=== PATIENT | male | born 1975 | race Two or more races ===

== ENCOUNTER 2025-06-18 21:27 | Inpatient (IN) | payer MEDICAID ==
[~2025-06-18] VITALS: Ht 170.2 cm; Wt 79.0 kg
[2025-06-18 21:41] VITALS: O2SAT 99
[2025-06-18 23:01] LABS: BASOPHILS % 0.4 % (0.0-2.0); EOSINOPHILS % 4.0 % (0.0-5.0); HEMATOCRIT. 40.8 % (42.0-52.0); HEMOGLOBIN. 14.3 g/dL (14.0-18.0); LYMPHOCYTES % 32.2 % (20.0-50.0); MEAN PLATELET VOLUME 8.6 fl (7.4-10.4); MONOCYTES % 8.0 % (2.0-8.0); NEUTROPHILS % 55.4 % (40.0-76.0); PLATELET 220 x1000/uL (130-400); RED BLOOD CELL COUNT 4.25 mill/uL (4.7-6.1); RED CELL DISTRIBUTION WIDTH 12.4 % (11.6-14.6)
[2025-06-18 23:15] LABS: CREATININE 0.7 mg/dL (0.6-1.3); UREA NITROGEN BLOOD 9 mg/dL (9-23)
[2025-06-18] MEDS: ONDANSETRON HCL 4MG/2ML INJ IV ONE (23:34)
[2025-06-18] MEDS: MORPHINE SULFATE 4 MG/ML INJ (FOR IV/IM USE) IV ONE (23:35)
[2025-06-18] MEDS: SODIUM CHLORIDE 0.9% 1,000 ML IV ONE (23:35)
[2025-06-19 03:48] LABS: CLARITY URINE CLEAR (CLEAR); COLOR URINE YELLOW (YELLOW); GLUCOSE URINE NEGATIVE (NEGATIVE); KETONES URINE NEGATIVE (NEGATIVE); LEUKOCYTE ESTERASE URINE NEGATIVE (NEGATIVE); NITRITE URINE NEGATIVE (NEGATIVE); OCCULT BLOOD URINE NEGATIVE (NEGATIVE); PH URINE 7.0 (4.5-8.0); PROTEIN URINE NEGATIVE (NEGATIVE); SPECIFIC GRAVITY URINE 1.008 (1.005-1.030); UROBILINOGEN URINE 0.2 E.U./dL (0.2-1.0)
[2025-06-19 04:46] VITALS: BP 152/87; PULSE 57; RESP 18; TEMP 36.418
[2025-06-19] MEDS ORDERED: ACETAMINOPHEN 325MG TABLET PO PRN ×2 (06:00)
[2025-06-19] MEDS ORDERED: NALOXONE HCL 0.4MG/ML VIAL IV PRN (06:00)
[2025-06-19] MEDS: HYDROCODONE/ACETAMINOPHEN 10/325MG TABLET PO PRN (06:41)
[2025-06-19 08:00] VITALS: BP 138/77; PULSE 62; RESP 16; TEMP 36.7; O2SAT 97
[2025-06-19] MEDS: SEVELAMER CARBONATE 800 MG TABLET PO SCH (09:11)
[2025-06-19] MEDS: AMLODIPINE 10MG TABLET PO SCH (09:11)
[2025-06-19 12:00] VITALS: BP_SYST 124; BP_SYST 125; BP_SYST 131; BP_DIAS 73; BP_DIAS 79; BP_DIAS 81; PULSE 70; RESP 18; TEMP 36.7; O2SAT 97
[2025-06-19] MEDS ORDERED: KETOROLAC 30MG/ML VIAL IV PRN (12:00)
[2025-06-19 12:41] LABS: BASOPHILS % 0.8 % (0.0-2.0); EOSINOPHILS % 4.2 % (0.0-5.0); HEMATOCRIT. 40.7 % (42.0-52.0); HEMOGLOBIN. 14.1 g/dL (14.0-18.0); LYMPHOCYTES % 32.2 % (20.0-50.0); MEAN PLATELET VOLUME 8.9 fl (7.4-10.4); MONOCYTES % 7.8 % (2.0-8.0); NEUTROPHILS % 55.0 % (40.0-76.0); PLATELET 196 x1000/uL (130-400); RED BLOOD CELL COUNT 4.20 mill/uL (4.7-6.1); RED CELL DISTRIBUTION WIDTH 12.4 % (11.6-14.6)
[2025-06-19 12:58] LABS: TRIGLYCERIDE 271.0 mg/dL (0-150)
[2025-06-19 12:59] LABS: LDL CHOLESTEROL 155.0 mg/dL (5-100)
[2025-06-19 15:57] LABS: *AMPHETAMINES SCREEN URINE NEGATIVE (NEGATIVE); *BARBITURATES SCREEN URINE NEGATIVE (NEGATIVE); *BENZODIAZEPINES SCREEN URINE NEGATIVE (NEGATIVE); *COCAINE SCREEN URINE NEGATIVE (NEGATIVE); CANNABINOID URINE SCREEN NEGATIVE (NEGATIVE); ECSTASY MDMA SCREEN URINE NEGATIVE (NEGATIVE); METHADONE URINE SCREEN NEGATIVE (NEGATIVE); OPIATES URINE SCREEN PRESUMPTIVE POSITIVE (NEGATIVE); PHENCYCLIDINE URINE SCREEN NEGATIVE (NEGATIVE)
[2025-06-19 16:00] VITALS: BP 108/65; PULSE 60; RESP 15; TEMP 36.7; O2SAT 97
[2025-06-19] MEDS: ASPIRIN 81MG TABLET PO SCH (16:55)
[2025-06-19 20:00] VITALS: BP 115/68; PULSE 65; RESP 18; TEMP 36.5; O2SAT 97
[2025-06-19] MEDS: ATORVASTATIN CALCIUM 40MG TABLET PO SCH (20:29)
[2025-06-20] VITALS: BP 121/64; PULSE 58; RESP 18; TEMP 36.7; O2SAT 98
[2025-06-20 04:00] VITALS: BP_SYST 102; BP_SYST 103; BP_SYST 104; BP_DIAS 68; BP_DIAS 72; PULSE 56; RESP 18; TEMP 36.5; O2SAT 97
[2025-06-20 08:00] VITALS: BP_SYST 108; BP_SYST 110; BP_SYST 118; BP_DIAS 70; BP_DIAS 74; BP_DIAS 80; PULSE 65; RESP 17; TEMP 36.4; O2SAT 98
[2025-06-20] MEDS: ENOXAPARIN 40MG/0.4ML SYR SUBCUT SCH (09:21)
[2025-06-20 12:00] VITALS: BP 120/75; PULSE 64; RESP 16; TEMP 36.4; O2SAT 97
[2025-06-20] MEDS ORDERED: MECLIZINE 25MG TABLET PO PRN (12:30)
[2025-06-20] MEDS: MECLIZINE 25MG TABLET PO NR (13:06)
[2025-06-20 16:00] VITALS: BP 122/80; PULSE 80; RESP 17; TEMP 36.4; O2SAT 96
[2025-06-20] MEDS ORDERED: MECL-299 MT (16:55)
[2025-06-20] MEDS ORDERED: ATOR20TA MT (16:55)
[2025-06-20 17:36] VITALS: BP 109/69; PULSE 64; RESP 17; TEMP 97.9
== END 2025-06-20 18:40 | disposition home or self-care (01) | DRG 48 ==
LOC: ER 21:27 → 6WST 06-19 03:20 → EDBEDREQTM 06-19 03:24 → EDBEDREQ 06-19 03:24 → ENRESERV 06-19 03:46
PROVIDERS: ADMIT Internal Medicine; ATTEND Internal Medicine
DX: G90.89 Other disorders of autonomic nervous system (principal); E78.5 Hyperlipidemia, unspecified; H83.2X9 Labyrinthine dysfunction, unspecified ear
CPT/HCPCS: 36415; 71045; 80048; 80061; 80305; 81003; 83036; 85025; 93005; 99285; J1650; J2270; J2405; J7030; J8597